=== PATIENT | male | born 1985 | race Caucasian/White ===

== ENCOUNTER 2018-02-01 19:30 | Emergency (ER) | payer MEDICAID ==
[~2018-02-01] VITALS: Ht 165.1 cm; Wt 68.2 kg
[2018-02-01 19:35] VITALS: BP 143/82
[2018-02-01] MEDS ORDERED: METH10SO PO (19:42)
== END 2018-02-01 21:13 | disposition left against medical advice (07) ==
LOC: EMS 19:30
DX: S00.91XA Abrasion of unspecified part of head, initial encounter (principal); S40.212A Abrasion of left shoulder, initial encounter; S80.812A Abrasion, left lower leg, initial encounter; F11.90 Opioid use, unspecified, uncomplicated; V29.3XXA Motorcycle rider (driver) (passenger) injured in unspecified nontraffic accident, initial encounter; Y93.89 Activity, other specified; Y92.828 Other wilderness area as the place of occurrence of the external cause; Y99.8 Other external cause status

== ENCOUNTER 2019-03-08 19:52 | Emergency (ER) | payer MEDICAID ==
[~2019-03-08] VITALS: Ht 165.1 cm; Wt 68.2 kg
[~2019-03-08 19:52] MED LIST: METH10SO PO
[2019-03-08 20:01] VITALS: BP 160/78
[2019-03-08] MEDS ORDERED: METH10SO PO (20:10)
[2019-03-08] MEDS ORDERED: KETOROLAC TROMETHAMINE 60 MG/2 ML VIAL IM ONE (20:30)
[2019-03-08] MEDS ORDERED: CEPHALEXIN MONOHYDRATE 500 MG CAPSULE PO ONE (22:15)
== END 2019-03-08 22:47 | disposition home or self-care (01) ==
LOC: EMS 19:52
DX: M25.571 Pain in right ankle and joints of right foot (principal); F11.90 Opioid use, unspecified, uncomplicated
CPT/HCPCS: 73610; 96372; 99283; J1885